=== PATIENT | female | born 1975 | race Caucasian/White ===

== ENCOUNTER 2024-01-04 13:45 | Outpatient (CLI) | payer BC, SELFPAY ==
--- NOTE | ~2024-01-04 | US_ITS ---
Pelvic ultrasound. Clinical History: Missing IUD strings Technique: Realtime transabdominal and transvaginal scanning of the pelvis was performed. Color flow Doppler and Doppler spectral analysis were performed. Findings: The uterus is anteverted, and measures 10.5 x 4.7 x 3.8 cm. The endometrial stripe has a t hickness of [address], at the lower uterine segment. No focal mass is identified. Neither ovary seen. No other adnexal mass seen. There is no evidence of free fluid in the cul de sac. Impression: IUD in place, at the lower uterine segment. Reviewed, dictated and finalized at location M. Impression: IUD in place, at the lower uterine segment.
== END 2024-01-04 13:46 ==
PROVIDERS: Visit Provider Obstetrics & Gynecology Gynecology
DX: T83.32XA Displacement of intrauterine contraceptive device, initial encounter (principal); Y83.8 Other surgical procedures as the cause of abnormal reaction of the patient, or of later complication, without mention of misadventure at the time of the procedure
CPT/HCPCS: 76830; 76856